=== PATIENT | male | born 1985 | race Caucasian/White ===

== ENCOUNTER 2020-05-03 13:38 | Emergency (ER) | payer BC, OTHER ==
[~2020-05-03] VITALS: Ht 185.4 cm; Wt 79.4 kg
[2020-05-03 13:38] VITALS: BP 144/78
== END 2020-05-03 14:20 | disposition home or self-care (01) ==
LOC: ER 13:43
DX: R53.83 Other fatigue (principal); G47.00 Insomnia, unspecified

== ENCOUNTER 2020-07-05 07:30 | Emergency (ER) | payer OTHER ==
[~2020-07-05] VITALS: Ht 185.4 cm; Wt 83.9 kg
--- NOTE | 2020-07-05 07:40 | NUR ---
panda, from home, took unknown amount of trazadone, no SOB, denies SI, BS 159. Patient a/ox4, verbally responsive, sleepy. Patient changed into a gown, attached to the nuclear monitoring technician.
--- NOTE | 2020-07-05 07:48 | NUR ---
blood drawn and sent to lab
--- NOTE | 2020-07-05 07:50 | NUR ---
tried to collect urine. pt unable to collect at this time
--- NOTE | 2020-07-05 07:52 | NUR ---
CALLED POISON CONTROL AND TALKED TO REKHA WITH RECOMMENDATION TO DRAW LABS SUCH CMP, ASA AND TYLENOL AND TO OBSERVE WITH A PHYSICIANS ASSISTANT X4 HOURS WITH A REPEAT EKG. CALL POISON CONTROL FOR ANY CHANGES, BUT NOT NECESSARY AT THIS TIME.
--- NOTE | 2020-07-05 07:54 | NUR ---
[employer] unit [id number] at bedside to interview pt
--- NOTE | 2020-07-05 07:58 | NUR ---
[employer] PER OFFICER MOLINA #[id number], PATIENT DENIES SI.
[2020-07-05 08:10] LABS: CALCIUM, SERUM 8.6 mg/dL (8.5-10.1); CARBON DIOXIDE 27 mmol/L (21-32); CHLORIDE 102 mmol/L (98-107); CREATININE 0.9 mg/dL (0.6-1.3); GLUCOSE 133 mg/dL (74-106); POTASSIUM 3.7 mmol/L (3.5-5.1); SODIUM SERUM 137 mmol/L (136-145); UREA NITROGEN, BLOOD 16 mg/dL (7-18)
[2020-07-05 08:15] LABS: ALANINE AMINOTRANSFERASE 22 U/L (12-78); ALBUMIN 3.7 g/dL (3.4-5.0); ALCOHOL, BLOOD < 3 mg/dL (0-0); ALKALINE PHOSPHATASE 46 U/L (46-116); ASPARTATE AMINOTRANSFERASE 21 U/L (15-37); BILIRUBIN,TOTAL 0.2 mg/dL (0.2-1.0); SALICYLATE 2.9 mg/dL (2.8-20.0); TOTAL PROTEIN, SERUM 6.5 g/dL (6.4-8.2)
[2020-07-05 08:17] LABS: ACETAMINOPHEN 0 ug/ml (10-30)
[2020-07-05 08:30] LABS: BASOPHILS # (AUTO) 0.1 /CMM (0.0-0.2); BASOPHILS % (AUTO) 0.6 % (0.0-2.0); EOSINOPHILS % (AUTO) 2.6 % (0.0-6.0); HEMATOCRIT 40 % (39-51); LYMPHOCYTES % (AUTO) 25.1 % (20.0-44.0); MEAN CORPUSCULAR HGB CONC 33 g/dl (31.0-36.0); MEAN CORPUSCULAR VOLUME 91 fL (80-96); MONOCYTES # (AUTO) 0.6 /CMM (0.1-1.30); MONOCYTES % (AUTO) 6.8 % (2.0-12.0); NEUTROPHILS # (AUTO) 5.3 /CMM (1.8-8.9); NEUTROPHILS % (AUTO) 64.9 % (43.0-81.0); PLATELET COUNT (AUTO) 171 /CMM (150-450); RED BLOOD CELL COUNT(AUTO) 4.38 MIL/uL (4.5-6.0); WHITE BLOOD COUNT (AUTO) 8.1 K/uL (4.3-11.0)
--- NOTE | 2020-07-05 10:07 | NUR ---
BHARAT AT BEDSIDE FOR EVAL.
[2020-07-05 10:15] LABS: APPEARANCE,URINE CLEAR (CLEAR); BILIRUBIN,URINE NEGATIVE (NEGATIVE); BLOOD, URINE NEGATIVE Ery/uL (NEGATIVE); COLOR,URINE YELLOW (YELLOW); KETONES,URINE NEGATIVE (NEGATIVE); LEUKOCYTE ESTERASE ,URINE NEGATIVE (NEGATIVE); NITRITE, URINE NEGATIVE (NEGATIVE); PROTEIN,URINE NEGATIVE (NEGATIVE); UGLUCOSE NEGATIVE (NEGATIVE); UROBILINOGEN,URINE 0.2 EU/dL (0.2)
--- NOTE | 2020-07-05 12:56 | NUR ---
PATIENT A/OX4, RESTING, NO DISTRESS NOTED, STS HE WANTS TO GO HOME, ART PRODUCT/INDUSTRY CONSULTANT PRESENT IN FACILITY AND DR. JOHNSON WANTS PATIENT TO BE EVALUATED.
--- NOTE | 2020-07-05 13:03 | NUR ---
KERI ([facility]) [phone]
--- NOTE | 2020-07-05 13:59 | NUR ---
CALLED SISTER FOR BROADCAST MAINTENANCE ENGINEER. Patient a/ox4, breathing even and unlabored, no sob noted, needs attended. IV removed. Catheter intact and site benign. Pressure and 4x4 applied to site. No bleeding noted. Patient discharged to home in stable condition. Written and verbal after care instructions given. Patient verbalizes understanding of instruction.
[2020-07-05 14:12] VITALS: BP 111/74
== END 2020-07-05 14:12 | disposition home or self-care (01) ==
LOC: ER 07:34
DX: T43.212A Poisoning by selective serotonin and norepinephrine reuptake inhibitors, intentional self-harm, initial encounter (principal); R10.9 Unspecified abdominal pain; Y92.89 Other specified places as the place of occurrence of the external cause
CPT/HCPCS: 36415; 80048-TC; 80076-TC; 81000-TC; 85025-TC; G0480